=== PATIENT | male | born 1995 | race Caucasian/White ===

== ENCOUNTER 2021-05-24 17:58 | Emergency (ER) | payer OTHER, SELFPAY ==
--- NOTE | ~2021-05-24 | XR_ITS ---
EXAMINATION: XR hand LT min 3V INDICATION: Right hand pain TECHNIQUE: Three views of the right hand are obtained. COMPARISON: None available FINDINGS: There is medial soft tissue swelling of the hand near the fifth metacarpal. No fracture is identified. Bone alignment is normal. The joint spaces are maintained. IMPRESSION: 1. Soft tissue swelling without acute osseous abnormality. Reviewed, dictated and finalized at location F. [employer]
[2021-05-24 19:20] VITALS: BP 127/67; PULSE 66; RESP 20; TEMP 36.6; O2SAT 100
--- NOTE | 2021-05-24 20:15 | ED.UPPEXIN ---
HPI - Extremity Injury (Upper) General Chief Complaint: Extremity Injury, Upper Stated Complaint: rt hand inj Time Seen by Provider: 05/24/21 20:09 Source: patient and RN notes reviewed Mode of arrival: ambulatory Limitations: no limitations History of Present Illness HPI narrative: Patient presents today complaining of right hand injury. He slammed his hand into his truck door last night on accident, injuring the dorsum. Currently rates his pain 6/10. He has been applying ice. He has not been taking any [id number] medication for symptoms prior to arrival. Reports tingling to the dorsum of the hand. complaint: injury to: right and hand Related Data Home Medications Medication Instructions Recorded Confirmed No Home Medications 05/24/21 05/24/21 Allergies Allergy/AdvReac Type Severity Reaction Status Date / Time Penicillins Allergy Rash Verified 05/24/21 19:33 Review of Systems Review of Systems: CONSTITUTIONAL: Denies body aches, fever, chills, or sweats. EYES: Denies visual changes, redness, or discharge. ENT: Denies rhinorrhea, congestion, sore throat, or otalgia. CARDIOVASCULAR: Denies chest pain, palpitations, or edema. RESPIRATORY: Denies cough or dyspnea. GASTROINTESTINAL: Denies abdominal pain, nausea, vomiting, or diarrhea. GENITOURINARY: Denies dysuria or hematuria. SKIN: Denies rash, itching, or wounds. MUSCULOSKELETAL: Denies back pain, or myalgia.+ Right hand injury and swelling NEUROLOGIC: Denies headache, numbness, tingling, or weakness. PSYCH: Denies depression or anxiety. PMFSH Comments At time of signature, I have reviewed and agree with nursing past medical, surgical, social and family history unless otherwise noted. Please see nursing chart for further information. There is no relevant family history pertinent to the presenting complaint Exam Narrative: GENERAL: Well-appearing, well-nourished, and in no acute distress. HEAD: Normocephalic, atraumatic. EYES: EOMI. No redness or drainage. Conjunctivae normal. ENT: Mucous membranes pink and moist. NECK: Normal AROM. CHEST: No respiratory distress. EXTREMITIES: Right hand: Moderate swelling to the dorsum of the hand with tenderness. Distal sensation intact. Capillary refill normal. Full AROM of all fingers. SKIN: Warm, dry, no rash. Capillary refill normal. Normal skin turgor. NEURO: No focal deficits. Alert and oriented x3. Gait steady. PSYCH: Normal affect. No signs of depression or anxiety. Course Course Level of Care: Express Care Visit Vital Signs Vital signs: Vital Signs Temperature 98 F 05/24/21 19:20 Pulse Rate 66 05/24/21 19:20 Respiratory Rate 20 05/24/21 19:20 Blood Pressure 127/67 05/24/21 19:20 Pulse Oximetry 100 05/24/21 19:20 Temperature 98 F 05/24/21 19:20 Pulse Rate 66 05/24/21 19:20 Respiratory Rate 20 05/24/21 19:20 Blood Pressure 127/67 05/24/21 19:20 Pulse Oximetry 100 05/24/21 19:20 Reviewed. Pt has been instructed to follow up with his PCP regarding his elevated blood pressure today. MDM - Extremity Injury (Upper) Differential Diagnosis Differential diagnosis: Likely fracture of hand and other (Contusion) Imaging Data Radiologist's impression: ITS Impressions Hand X-Ray 05/24/21 19:25 IMPRESSION: 1. Soft tissue swelling without acute osseous abnormality. Critical Care Time Critical Care Time Critical Care Time: No Discharge Plan Discharge Clinical Impression: Contusion of hand, right Qualifiers: Encounter type: initial encounter Qualified Code(s): S60.221A - Contusion of right hand, initial encounter Patient Disposition: Home, Self-Care Condition: Stable Instructions: Contusion in Adults (ED) Additional Instructions: Your x-ray is negative for fracture today. Apply ice to the hand. Take an anti-inflammatory such as Aleve or ibuprofen to help with pain and swelling. Follow-up with your PCP or orthopedic phys
== END 2021-05-24 20:20 | disposition home or self-care (01) ==
PROVIDERS: Emergency Provider Nurse Practitioner
DX: S60.221A Contusion of right hand, initial encounter (principal); V48.3XXA Unspecified car occupant injured in noncollision transport accident in nontraffic accident, initial encounter
CPT/HCPCS: 73130; 99213; G0463

== ENCOUNTER 2022-04-18 17:14 | Emergency (ER) | payer OTHER, SELFPAY ==
--- NOTE | ~2022-04-18 | XR_ITS ---
EXAM: XR knee LT min 4V DATE: 04/18/2022 17:43 HISTORY: FELL/LANDED SIDEWAYS 04/17/22, HEARD POP. PAINFUL. . COMPARISON: None available. FINDINGS: Normal mineralization. Mild cortical defect along the anterior surface of the medial femor al condyle. No lytic or blastic lesion. Joint spaces are maintained. No erosion or periosteal change. Soft tissues within normal limits. Small volume joint fluid. IMPRESSION: Possible acute mild cortical defect along the anterior surface of the medial femoral cond yle, more likely if there was an impact injury or if the the patient fell onto the knee. If so, consi kamla conservative management and scheduling a nonemergent but timely MR of the left knee. Reviewed, dictated and finalized at location K. [employer] OFFICER IMPRESSION: Possible acute mild cortical defect along the anterior surface of t he medial femoral condyle, more likely if there was an impact injury or if the the patient fell onto the knee. If so, consider conservative management and jorge eduling a nonemergent but timely MR of the left knee.
--- NOTE | 2022-04-18 17:22 | ED.LOWEXIN ---
HPI - Extremity Injury (Lower) General Chief Complaint: Extremity Injury, Lower Stated Complaint: left knee injury Time Seen by Provider: 04/18/22 17:22 Source: patient and RN notes reviewed History of Present Illness HPI Narrative: Patient is a 26-year-old male who presents to urgent care with complaints of left knee pain. Patient states he tripped and landed on his left knee onto the concrete last night. Patient states that he heard a pop and now he is unable to straighten the knee. Patient states that he has been using ice. No other acute complaints or injuries from the incident. No acute distress noted. Patient aware of the plan of care. Some parts of this dictation were generated by voice recognition software and may contain typographical and/or grammatical inaccuracies. Related Data Allergies Allergy/AdvReac Type Severity Reaction Status Date / Time Penicillins Allergy Rash Verified 04/18/22 17:33 Review of Systems Review of Systems: CONSTITUTIONAL: Denies fever, chills, or sweats. EYES: Denies visual changes, redness, or discharge. ENT: Denies rhinorrhea, congestion, sore throat, or otalgia. CARDIOVASCULAR: Denies chest pain, palpitations, or edema. RESPIRATORY: Denies cough or dyspnea. GASTROINTESTINAL: Denies abdominal pain, nausea, vomiting, or diarrhea. GENITOURINARY: Denies dysuria or hematuria. SKIN: Denies rash or itching. MUSCULOSKELETAL: Reports of left knee pain NEUROLOGIC: Denies headache, numbness, or weakness. All other systems reviewed are negative, except as documented in HPI. PMFSH Comments At the time of my signature, I reviewed and agree with the nursing past medical, surgical, social, and family history. There is no relevant family history pertinent to the patient complaint. Exam Narrative: GENERAL: This is a well-nourished, well-developed patient, in no apparent distress. HEAD: normocephalic, atraumatic. EYES: PERRL. Sclera clear/white. Vision is grossly intact. EARS: External ears normal NOSE: External nose normal with no obvious nasal discharge, nares without redness, no rhinorrhea. THROAT: Mucous membranes moist NECK: Neck supple, SKIN: warm, intact with no suspicious lesions or rash, good texture and turgor. NEURO: awake, alert, and oriented to person, place and time. There were no obvious focal neurologic abnormalities. EXTREMITIES: range of motion limited due to inability to fully extend the left knee. Negative drawer test. No tenderness to the lateral / medial or anterior left knee. No obvious dislocation, erythema, edema or deformity noted to the left knee. Positive strong left pedal pulse with capillary refill less than 2 seconds. Course Course Level of Care: Express Care Visit Vital Signs Vital signs: Vital Signs Temperature 97.4 F L 04/18/22 17:35 Pulse Rate 74 04/18/22 17:35 Respiratory Rate 14 04/18/22 17:35 Temperature 97.4 F L 04/18/22 17:35 Pulse Rate 74 04/18/22 17:35 Respiratory Rate 14 04/18/22 17:35 Blood Pressure 128/80 04/18/22 17:40 Pulse Oximetry 97 04/18/22 17:40 Reviewed MDM - Extremity Injury (Lower) MDM Narrative Medical decision making narrative: reviewed x-ray results with the patient. He is aware that there is an abnormality in the left knee that needs follow-up with Orthopedic and likely MRI. Advised the patient to obtain a slip on a knee brace from either [employer] or [employer] to wear until he is able to follow up with the Orthopedic. If you have any increase in pain associated with increased limitations to range of motion -go to the emergency room. Refrain from any strenuous activity and limit weight-bearing until follow-up with the orthopedic. Use the prescription pain medication as needed, conservatively. Keep the knee elevated with the use of ice. Follow up with the Orthopedic tomorrow. Differential Diagnosis Differential diagnosis: Likely ankle sprain and strain, acute internal derangement of kne
[2022-04-18 17:35] VITALS: PULSE 74; RESP 14; TEMP 36.3
[2022-04-18 17:40] VITALS: BP 128/80; O2SAT 97
== END 2022-04-18 18:05 | disposition home or self-care (01) ==
PROVIDERS: Emergency Provider Nurse Practitioner Family
DX: M89.9 Disorder of bone, unspecified (principal)
CPT/HCPCS: 73564; 99213; G0463